=== PATIENT | male | born 1995 | race Two or more races ===

== ENCOUNTER 2021-12-06 14:14 | Emergency (ER) | payer OTHER ==
[~2021-12-06] VITALS: Ht 185.4 cm; Wt 82.0 kg
[2021-12-06 16:23] VITALS: BP 130/70
[2021-12-06] MEDS ORDERED: BECL80AE11 IN (16:45)
[2021-12-06] MEDS ORDERED: ALBUAER3 IN (16:45)
== END 2021-12-06 16:51 | disposition home or self-care (01) ==
LOC: ER 14:14
DX: J45.901 Unspecified asthma with (acute) exacerbation (principal); F12.10 Cannabis abuse, uncomplicated; Z76.0 Encounter for issue of repeat prescription

== ENCOUNTER 2024-02-25 20:40 | Emergency (ER) | payer OTHER ==
[~2024-02-25] VITALS: Ht 185.4 cm; Wt 98.1 kg
[~2024-02-25 20:40] MED LIST: ALBUAER3 IN; BECL80AE11 IN
[2024-02-25] MEDS ORDERED: METH4PAK PO (23:51)
[2024-02-25] MEDS ORDERED: ALBUAER3 IN (23:51)
--- NOTE | 2024-02-25 23:52 | ED.PDOC ---
SOB-HPI HPI Comments This is a 28-year-old male patient with history of asthma presents to the ED requesting refill of his albuterol inhaler. Patient states he recently ran out has been increasing wheezing only at night. He also states takes prednisone as needed for increased wheezing and exacerbations. He is requesting refills. Denies chest pain, difficulty breathing, fevers, chills, cough, or wheezing at this time. Chief Complaint: Flu like Time Seen by MD: 20:53 Reviewed notes: Nurses Notes, Medications, Allergies Information Source: Patient Mode of Arrival: Ambulatory Past Medical History PAST MEDICAL HISTORY: Asthma Surgical History: Denies all surgeries Family History Family History: Unknown Social History Smoker: Other Alcohol: Denies ETOH Use Drugs: Marijuana Lives In: Home Constitutional: denies: chills, diaphoresis, fatigue, fever, malaise, sweats, weakness, others EENTM: denies: blurred vision, double vision, ear bleeding, ear discharge, ear drainage, ear pain, ear ringing, eye pain, eye redness, hearing loss, mouth pain, mouth swelling, nasal discharge, nose bleeding, nose congestion, nose pain, photophobia, tearing, throat pain, throat swelling, voice changes, others Respiratory: reports: wheezing; denies: cough, hemoptysis, orthopnea, SOB at rest, shortness of breath, SOB with excertion, stridor, others Cardiovascular: denies: chest pain, dizzy spells, diaphoresis, Dyspnea on exertion, edema, irregular heart beat, left arm pain, lightheadedness, palpitations, PND, syncope, others Gastrointestinal: denies: abdomen distended, abdominal pain, blood streaked bowels, constipated, diarrhea, dysphagia, difficulty swallowing, hematemesis, melena, nausea, poor appetite, poor fluid intake, rectal bleeding, rectal pain, vomiting, others Genitourinary: denies: burning, dysuria, flank pain, frequency, hematuria, incontinence, penile discharge, penile sore, pain, testicle pain, testicle swelling, urgency, others Neurological: denies: dizziness, fainting, headache, left sided numbness, left sided weakness, numbness, paresthesia, pre-existing deficit, right sided numbness, right sided weakness, seizure, speech problems, tingling, tremors, weakness, others Musculoskeletal: denies: back pain, gout, joint pain, joint swelling, muscle pain, muscle stiffness, neck pain, others Integumetry: denies: bruises, change in color, change in hair/nails, dryness, laceration, lesions, lumps, rash, wounds, others Allergic/Immunocompromised: denies: Difficulty Healing, Frequent Infections, Hives, Itching, others Hematologic/Lymphatic: denies: anemia, blood clots, easy bleeding, easy bruising, swollen glands, others Endocrine: denies: excessive hunger, excessive sweating, excessive thirst, excessive urination, flushing, intolerance to cold, intolerance to heat, unexplained weight gain, unexplained weight loss, others Physical Exam General Appearance: No Apparent Distress, Normal HEENT: Normal ENT Inspection, Pharynx Normal, TMs Normal Neck: Full Range of Motion, Non-Tender Respiratory: Chest Non-Tender, Expiration, No Accessory Muscle Use, No Respiratory Distress, Wheezing Cardiovascular: No Murmur, Normal Peripheral Pulses, Regular Rate/Rhythm Breast Exam: Deferred Gastrointestinal: Non Tender, Soft Genitalia: Deferred Pelvic: Deferred Rectal: Deferred Extremities: Normal capillary refill, Normal inspection, Normal range of motion, Non-tender, No pedal edema Musculoskeletal : Apperance: Normal Neurologic: Alert, plateman II-XII nml as Tested, No Motor Deficits, Normal Affect, Normal Mood, No Sensory Deficits Cerebellar Function: Normal Reflexes: Normal Skin: Dry, Normal Color, Warm Lymphatic: No Adenopathy Was a procedure done? Was a procedure done?: No Differential Dx Differential Diagnosis: Asthma, Allergic Rhinitis X-Ray, Labs, Meds, VS Vital Signs Date Time Temp Pulse Resp B/P (MAP) Pulse Ox O2 Delivery O2 Flow Rate FiO2 02/26/24 00:22 98.2 91 18 147/95 (112) 94 98.2 02/26/24 00:22 91 18 94 Room Air 02/25/24 21:54 98.9 105 18 147/89 (108) 97 Current Medications Medications (Trade) Dose Ordered Sig/Aranza Route Start Time Stop Time Status Last Admin Dexamethasone Sodium Phosphate (Decadron Injection) 10 mg ONCE ONCE IM 02/26/24 00:45 02/26/24 00:46 DC 02/26/24 00:55 X-Ray, Labs, Meds, VS Comment Patient given Decadron 10 mg IM tolerated well reports improvement in symptoms requesting discharge at this time. We will refill his albuterol and steroid Medrol Dosepak advised only to start it for exacerbations. Advised to follow up with his PCP in 2-3 days as necessary. Advised to always keep his albuterol inhaler Handy in filled. ED return precautions given patient indicated understanding, agrees with discharge plan of care. Time of 1ST Reevaluation: 23:50 Reevaluation 1ST: Improved Patient Education/Counseling: Diagnosis, Treatment, Prognosis, Need For Follow Up Family Education/Counseling: No Family Present Departure 1 Departure Time of Disposition: 23:50 Impression: Primary Impression: Medication refill Additional Impression: Acute asthma exacerbation Qualified Codes: J45.21 - Mild intermittent asthma with (acute) exacerbation Disposition: HOME / SELF CARE / HOMELESS Condition: Stable e-Prescriptions Methylprednisolone (Medrol Dosepak) 4 Mg Alirio 4 MG PO UD for 6 Days, #21 TAB UAD Prov: TARI GARCÍA 02/25/24 Albuterol Sulfate (VENTOLIN MDI) 90 Mcg Ih 90 MCG IN Q6HP PRN for 30 Days, #1 INHALER Prov: TARI GARCÍA 02/25/24 Discharged With: Self Critical Care Note Critical Care Time?: No Stability Stability form required: No Heart Score Heart Score: Heart Score Response (Comments) Value History N/A 0 EKG N/A 0 Age <45 0 Risk Factors N/A 0 Troponin N/A 0 Total 0 TARI GARCÍA Feb 25, 2024 23:52
[2024-02-26 00:22] VITALS: BP 147/95; PULSE 91; RESP 18; TEMP 98.2; O2SAT 94
[2024-02-26] MEDS: DexAMETHasone SOD PHOS 10MG/1ML VIAL INJ IM ONE (00:55)
== END 2024-02-26 00:59 | disposition home or self-care (01) ==
LOC: ER 20:40
DX: J45.901 Unspecified asthma with (acute) exacerbation (principal); F17.200 Nicotine dependence, unspecified, uncomplicated; F15.90 Other stimulant use, unspecified, uncomplicated; Z76.0 Encounter for issue of repeat prescription
CPT/HCPCS: 96372; 99283; J1100